=== PATIENT | male | born 1945 | race Caucasian/White ===

== ENCOUNTER 2016-06-09 06:23 | Inpatient (IN) | payer MEDICARE ==
--- NOTE | ~2016-06-09 | CN ---
Consultation Report [facility] [address] [place]. [address] NAME: ELSY HAM : 49 STATUS : ADM IN PAT#: [id number] AGE: 71 ADM/REG DATE : 06/09/16 MR#: [id number] REPORT SERV DATE: 06/09/16 DICTATED BY: PIO HOYT DATE: 06/09/16 REPORT STATUS : Draft TRANSCRIBED BY: MODL DATE: 06/09/16 CONSULTATION DATE OF CONSULTATION: 06/09/2016 IMPRESSION: 1. Uncontrolled hypertension. 2. Acute diverticulitis. 3. Chronic kidney disease with a solitary kidney. 4. History of renal cell carcinoma, status post nephrectomy, currently under a study with Dr. Parth Bolanos. PLAN: We will change IV fluids to lactated Ringer to reduce salt amount in the fluids as well as reduce the rate of fluid to 100 mL an hour. We will give patient IV LEAD SIMULATION MODELING ENGINEER for better pain control which will help blood pressure. We will start the patient on labetalol 20 mg every six hours p.r.n. for blood pressure greater than 160. Hold for heart rate less than 70. We will also continue hydralazine 10 mg every six hours for blood pressure greater than 160/90. The patient will have a clonidine patch placed that has already been done. We will resume home dose of clonidine 0.1 mg twice daily. We will check routine labs again in the morning. I have discussed the plan of care with the and the patient at the bedside. They understand and agree. We thank you for this consultation. We will follow with you. BRIEF HISTORY OF PRESENT ILLNESS: The patient is a 71-year-old white male, admitted to General Surgery Service for acute diverticulitis with possibility of acute peritonitis. Medicine Service was asked to see the patient for uncontrolled hypertension. This patient denies any headache. This patient denies any visual difficulty. This patient denies any chest pain or shortness of breath. He has had some nausea, but no vomiting. He did have one bowel movement. He voided about 400 mL of urine today. However, his blood pressure has been very difficult to manage. He has been given IV fluids and adequate for reasonable pain control to see if his pressure would respond. This patient denied any fever, chills, or any other constitutional symptoms. REVIEW OF SYSTEMS: A 12-point review of systems otherwise negative. PAST MEDICAL HISTORY: Significant for chronic kidney disease with solitary kidney, hypertension, and renal cell carcinoma. PAST SURGICAL HISTORY: Significant for left nephrectomy for renal cell carcinoma and a hernia repair. ALLERGIES: NO KNOWN DRUG ALLERGIES. HOME MEDICATIONS: Aspirin 81 mg once daily, Coenzyme Q10, vitamin D, vitamin B12, clonidine Consultation Report [facility] [address] [place]. [address] NAME: ELSY HAM : 47 STATUS : ADM IN PAT#: [id number] AGE: 71 ADM/REG DATE : 06/09/16 MR#: [id number] REPORT SERV DATE: 06/09/16 DICTATED BY: PIO HOYT DATE: 06/09/16 REPORT STATUS : Draft TRANSCRIBED BY: SAMANTHA DATE: 06/09/16 0.1 mg twice daily, Prevacid 30 mg once at bedtime, hydrocodone 5/325 one tablet every six hours p.r.n. for pain, ibuprofen 400 mg once daily as needed, and prednisone 20 mg recently started. SOCIAL HISTORY: No use of alcohol, tobacco, or illicit substances. FAMILY HISTORY: Reviewed with the patient but noncontributory for this encounter. PHYSICAL EXAMINATION: VITAL SIGNS: Blood pressure is 225/124. Most recent blood pressure 184/94, heart rate of 114, and saturation of 96%. HEENT: Head is normocephalic, atraumatic. Pupils are equal, round, and reactive to light. Extraocular muscles are intact. Sclerae anicteric. Conjunctivae normal. Oropharynx is without lesion. Tongue protrusion midline. Uvula midline. Dry mucous membranes. NECK: Supple. No jugular venous distention. No carotid bruits or thyromegaly is appreciated. No lymphadenopathy in the neck is palpable. HEART: Tachycardic. No murmurs, rubs, or gallops. PMI nondisplaced. LUNGS: Clear to auscultation anteriorly and in both axillary areas. ABDOMEN: Significantly tight. Very significant guarding. Worse in the lower quadrants. No rebound. Organomegaly not appreciable because of the patient's guarding. EXTREMITIES: Without cyanosis, clubbing, or edema. NEUROLOGICAL: Seems to be grossly intact. LABORATORY DATA: CT of the abdomen and pelvis shows acute sigmoid diverticulitis without perforation. Electrolytes are completely normal. BUN is 27 and creatinine of 1.87, which is at his baseline. Glucose is 105. Liver function studies are all normal. Lipase was slightly elevated at 459 and lactate level is 2.0. White count is 21,000, hemoglobin of 17.9, hematocrit of 51, and platelet count is 199,000. No left shift. Once again, we thank you for this consultation. We will follow with you. SV/MODL Pio Hoyt M.D. / [id number] CC: MD Kala Demarco MD Derek W Holland, M.D.
--- NOTE | ~2016-06-09 | HP ---
History And Physical [place] [place] [id number] [facility] [place]. [address] NAME: ELSY FARR : 49 STATUS : DIS IN PAT#: [id number] AGE: 71 ADM/REG DATE : 06/09/16 MR#: [id number] REPORT SERV DATE: 07/16/16 DICTATED BY: KELSEY FLOREZ DATE: 07/16/16 REPORT STATUS : Draft TRANSCRIBED BY: MODL DATE: 07/16/16 DATE OF ADMISSION: 06/09/2016 CHIEF COMPLAINT: Abdominal pain. HISTORY OF PRESENT ILLNESS: Mr. Farr is a 71-year-old man who presents with severe left lower quadrant and suprapubic abdominal pain for approximately 12-14 hours. Reports that the pain radiated to his penis and lower abdomen. He denies vomiting, shortness of breath, fevers, and chills. He does have dysuria and did have nausea and dry heaves on the day of admission. He had no previous history of diverticulitis or pain of this nature before. PAST MEDICAL HISTORY: Hypertension, kidney cancer. PAST SURGICAL HISTORY: Left nephrectomy, colonoscopy. ALLERGIES: NO KNOWN DRUG ALLERGIES. MEDICATIONS: Prednisone. FAMILY HISTORY: He denies colon cancer. SOCIAL HISTORY: He is retired, . He denies tobacco, alcohol, or drugs. REVIEW OF SYSTEMS: Comprehensive 12-point review of system was obtained and is negative except for that listed in history of present illness. PHYSICAL EXAMINATION: VITAL SIGNS: Temperature is 99.3, respiratory rate of 16, sat 95%, his blood pressure is 217/120, his heart rate is 114. GENERAL: He is a very ill appearing, uncomfortable, dry heaving. CHEST: Clear to auscultation bilaterally. Nonlabored breathing. CARDIOVASCULAR: Tachycardic with regular rhythm. ABDOMEN: Soft. He has tenderness to palpation in lower abdomen with focal peritonitis. There is no diffuse peritonitis. No hernias. No masses. EXTREMITIES: Well perfused. No edema. LABORATORY VALUES: White blood cell count 21.5, hematocrit 51, platelets 199. Sodium 143, potassium 4, chloride 106, bicarb 25, BUN 27, creatinine 1.8, glucose 108, lactate is 2. CT shows extensive colonic diverticulitis with microperforation and phlegmon in the mid sigmoid colon. There is possible interloop fluid in the pelvis, but no discreet abscess. ASSESSMENT/PLAN: Mr. Farr is a 71-year-old man with evidence of complicated diverticulitis with microperforation and phlegmon. He is significantly hypertensive, tachycardic, ill appearing. We will admit him to the hospital, give him aggressive IV fluid resuscitation. We will start IV antibiotics. Monitor his clinical course. It is possible History And Physical [address] [address] NAME: ELSY FARR : 49 STATUS : DIS IN PAT#: [id number] AGE: 71 ADM/REG DATE : 06/09/16 MR#: [id number] REPORT SERV DATE: 07/16/16 DICTATED BY: KELSEY FLOREZ DATE: 07/16/16 REPORT STATUS : Draft TRANSCRIBED BY: SAMANTHA DATE: 07/16/16 he will need an operation this admission, however, if we can get him cooled down with antibiotics and fluids, we may be able to delay this to more of elective operation. We will rescan him in a few days to identify if this has progressed. We will consult the Medicine team for his severe hypertension. NICOLETTE/SAMANTHA Kelsey Florez MD / [id number] CC: MD Kala Demarco MD
--- NOTE | ~2016-06-09 | OP ---
Record Of Operation [facility] [address] [place]. [address] NAME: ELSY FARR : 49 STATUS : ADM IN [facility]#: [id number] AGE: 71 ADM/REG DATE : 06/09/16 MR#: [id number] REPORT SERV DATE: 06/21/16 DICTATED BY: CHRISTOPHE COLE DATE: 06/21/16 REPORT STATUS : Draft TRANSCRIBED BY: MODL DATE: 06/21/16 DATE OF PROCEDURE: 06/16/2016 PREOPERATIVE DIAGNOSIS: Perforated diverticulitis. POSTOPERATIVE DIAGNOSIS: Perforated diverticulitis. OPERATION PERFORMED: Rahel's procedure. SURGEON: Christophe Cole M.D. LINK MACHINE OPERATOR: Helen Chanel MD. ESTIMATED BLOOD LOSS: Less than 100 mL. IV FLUIDS: Adequate. INDICATION FOR PROCEDURE: Mr. Farr is a 71-year-old gentleman, who had been admitted with perforated diverticulitis. He has a CT which shows increasing free air and worsening symptoms. He is brought to the operating room now for the definitive procedure. Full risks and benefits of the procedure have been discussed including the probable need for colostomy. INTRAOPERATIVE FINDINGS: Moderate amount of free air with significant exudate around the sigmoid colon. Due to his poor nutrition and inflammatory changes around the sigmoid colon, we held off on placing him back in continuity. DESCRIPTION OF OPERATION: After appropriate sedation, the patient was prepped and draped in proper sterile fashion. A lower midline incision was performed. Subcutaneous tissues were incised down through the peritoneum. There was free air that was released. There were inflammatory reaction around the colon. We then at this point, mobilized the colon laterally and medially along the peritoneum. This was difficult due to the amount of chronic inflammation. We were able to get down to relatively normal filling of rectum. We transected the proximal colon using a 75 ADELE stapler. We dissected the rectosigmoid junction using a 75 ADELE stapler. The mesentery was taken down using the Harmonic Scalpel as well as 2-0 stick ties. The specimen was then passed off with a suture placed on the distal aspect. We then copiously irrigated out the abdomen. We evaluated both limbs of the staple lines. Due to his poor nutrition and the amount of inflammation, I decided to hold off on placing him back in continuity, as I felt like he would be at high risk for leak and complication. We therefore mobilized the left colon superiorly along the white line of Toldt further to help with mobilization. He had previously been marked for colostomy. This area was excised using cautery in a circular fashion. We then incised the fat down to the anterior rectus fascia. On the left side, the left anterior rectus fascia was incised in a cruciate fashion. We then incised the posterior rectus fascia after splitting the rectus muscle. The colon was then delivered through the abdominal wall with good length. We then placed a Prolene suture on each edge of the staple line of the rectal stump. We then placed a Seprafilm into the pelvis and over the abdominal contents, after bringing the omentum over Record Of Operation [address] [place]. [address] NAME: ELSY FARR : 49 STATUS : ADM IN [facility]#: [id number] AGE: 71 ADM/REG DATE : 06/09/16 MR#: [id number] REPORT SERV DATE: 06/21/16 DICTATED BY: CHRISTOPHE COLE DATE: 06/21/16 REPORT STATUS : Draft TRANSCRIBED BY: SAMANTHA DATE: 06/21/16 the abdominal contents. The fascia was closed using a running #1 looped PDS suture. The wound was irrigated and the skin was closed using lucy. A sterile towel was placed over the abdominal wall. The staple line was excised from the distal colon. It was then matured using 3-0 Vicryl sutures. It did appear viable. Ostomy appliance was placed. Dressings were placed. The patient was taken to recovery room in satisfactory condition. KARRI/SAMANTHA Christophe Cole M.D. / [id number] CC: MD Kala Demarco MD
--- NOTE | ~2016-06-09 | CN ---
Consultation Report [facility] [address] [place]. [address] NAME: ELSY FARR : 49 STATUS : ADM IN [facility]#: [id number] AGE: 71 ADM/REG DATE : 06/09/16 MR#: [id number] REPORT SERV DATE: 06/20/16 DICTATED BY: DATE: REPORT STATUS : Draft TRANSCRIBED BY: MODL DATE: 06/20/16 DATE OF CONSULTATION: REASON FOR CONSULTATION: Hypertension, solitary kidney. HISTORY OF PRESENT ILLNESS: Mr. Farr is a 71-year-old white male with a history of hypertension and CKD in the setting of solitary kidney with left nephrectomy for renal cell carcinoma, diverticulitis. He presented to the hospital with diverticulitis and had perforation. He is status post sigmoid colon resection with colostomy on 06/16/2016. In regard to his hypertension, he has had long-standing hypertension that has been well controlled, usual blood pressures in the 130s at home with clonidine 0.1 mg twice daily. He usually is quite active, runs at least three times weekly and since being in the hospital, his blood pressure has been up and he states his pain is better today, but has been uncontrolled. His last blood pressure just before I arrived was in the 150s after a labetalol injection. Heart rates in the 80s. He had a renal Doppler that was negative. He is already on amlodipine, metoprolol, clonidine, and getting p.r.n. hydralazine as well. No shortness of breath, chest pain, tightness, pressure. No problems with edema. PAST MEDICAL HISTORY: Hypertension, diverticulitis, CKD, solitary kidney, left renal cell carcinoma, status post nephrectomy. ALLERGIES: NONE. FAMILY MEDICAL HISTORY: No end-stage renal disease. SOCIAL HISTORY: He is . No tobacco, alcohol, or illicit drug use. MEDICATIONS AT THE TIME OF CONSULTATION: Acetaminophen, amlodipine, Lovenox, gabapentin, hydrochlorothiazide, regular insulin, levofloxacin, Flagyl, metoprolol, nitroglycerin, clonidine patch and clonidine p.o., TPN, and Protonix. REVIEW OF SYSTEMS: A 12-point review of systems obtained, negative with the exception of that in the HPI. PHYSICAL EXAMINATION: VITAL SIGNS: Temp 97.8, blood pressure 191/101 and before I went in, it was in the 150s, pulse 84, respiratory rate 16, O2 saturation 94% at 3 L. GENERAL: This is a cooperative white male, sitting up in chair at bedside. HEENT: Normocephalic, atraumatic. Conjunctivae clear. Sclerae are anicteric. Pupils are equal and round. Oral mucosa is dry. NECK: No lymphadenopathy. Neck veins flat. Carotids are brisk. LUNGS: Respirations even and unlabored. Breath sounds clear to auscultation. HEART: Rate is regular. No murmur, rub, or gallop. ABDOMEN: Colostomy to the left abdomen. No CVA tenderness. BACK: Within normal limits. Consultation Report [address] [place]. [address] NAME: ELSY FARR : 49 STATUS : ADM IN [facility]#: [id number] AGE: 71 ADM/REG DATE : 06/09/16 MR#: [id number] REPORT SERV DATE: 06/20/16 DICTATED BY: DATE: REPORT STATUS : Draft TRANSCRIBED BY: MODL DATE: 06/20/16 EXTREMITIES: No edema, cyanosis, or clubbing. SKIN: No unusual rash or skin lesions. NEURO: Generalized weakness. No focal deficits. Mood and affect, pleasant appropriate. PERTINENT LABS AND X-RAYS: WBCs 12, H and H 13 and 41, and platelets 232,000. Sodium 142, potassium 3.7, chloride 111, CO2 of 26, BUN of 40, creatinine 1.5. Magnesium of 2. Albumin of 1.8. BNP of 52. IMPRESSION: 1. Accelerated hypertension in the setting of diverticulitis in this patient that is usually well controlled with clonidine p.o. only. 2. Solitary kidney secondary to renal cell carcinoma. Creatinine is stable. 3. Diverticulitis with perforation, status post sigmoid colon resection and colostomy, postop day 4. PLAN/RECOMMENDATION: In regard to hypertension and blood pressure, last read was in the 150s and suspect that uncontrolled pain is the cause of his accelerated hypertension as he had reasonable control before and as this improves, so will his blood pressure. We will continue with p.r.n. labetalol as prescribed as well as the hydralazine. We will not make any medicine changes at this time, recommend better pain control, and we will follow along with you. We will follow up later this afternoon and see how blood pressures are. Thank you for the consult. CYNDEE/SAMANTHA SONYA Ortiz / [id number] CC: MD Kala Demarco MD
[2016-06-09 05:41] LABS: BASOPHILS 0.1 %; BASOPHILS ABSOLUTE 0.02 10/3/uL (0.0-0.16); EOSINOPHILS 0 %; IMMATURE GRANULOCYTES 1.1 %; IMMATURE GRANULOCYTES ABSOLUTE 0.23 10/3/uL (0.0-0.11); LYMPHOCYTES 2.8 %; MEAN CORPUS HGB CONC 34.9 g/dL (32.0-36.0); MEAN CORPUSCULAR HEMOGLOB 30.4 pg (26.0-34.0); MEAN CORPUSCULAR VOLUME 87.2 fL (80-100); MEAN PLATELET VOLUME 10.4 fL (9.2-13.0); MONOCYTES 4.8 %; MONOCYTES ABSOLUTE 1.04 10/3/uL (0.21-1.20); NEUTROPHILS 91.2 %; NEUTROPHILS ABSOLUTE 19.64 10/3/uL (2.02-8.40); RBC DISTRIBUTION WIDTH 13.9 % (12.0-16.0)
[2016-06-09 05:47] LABS: ER CBC TAT 0 Hrs 14 Mins; HEMATOCRIT 51.3 % (40.0-51.0); HEMOGLOBIN 17.9 g/dL (13.6-17.8); MANUAL DIFF NO %; PLATELET COUNT 199 10/3/uL (150-400); RED CELL COUNT 5.88 10/6/uL (4.7-6.1); WHITE BLOOD CELLS 21.5 10/3/uL (4.5-10.5)
[2016-06-09 05:54] LABS: A/G RATIO 1.2 (0.7-1.9); ALBUMIN 4.1 G/DL (3.5-5.0); ALKALINE PHOSPHATASE 107 U/L (45-117); BUN (BLOOD UREA NITROGEN) 27 MG/DL (6-23); CALCIUM, SERUM 9.6 MG/DL (8.5-10.4); CHLORIDE, SERUM 106 MMOL/L (96-112); CO2 (CARBON DIOXIDE) 25 MMOL/L (24-34); CREATININE 1.87 MG/DL (0.70-1.30); GFR AFRICAN AMERICAN 42 ML/MIN (>=60); GFR NON AFRICAN AMERICAN 36 ML/MIN (>=60); GLOBULIN 3.4 G/DL (2.5-4.1); GLUCOSE, SERUM 105 MG/DL (60-99); SGOT(AST) 17 U/L (5-40); SGPT(ALT) 36 U/L (5-65); SODIUM, SERUM 143 MMOL/L (135-148); TOTAL PROTEIN 7.5 G/DL (6.0-8.5)
[~2016-06-09 06:23] MED LIST: MICARDIS HCT PO; NORV10 PO; PREV30 PO; Z300 PO
[2016-06-09] MEDS ORDERED: CO Q-10100 MG PO (07:40)
[2016-06-09] MEDS ORDERED: ASAB PO (07:40)
[2016-06-09] MEDS ORDERED: D 5000 PO (07:40)
[2016-06-09] MEDS ORDERED: PREV30 PO (07:41)
[2016-06-09] MEDS ORDERED: CYANO1000T PO (07:41)
[2016-06-09] MEDS ORDERED: CAT1 PO (07:41)
[2016-06-09] MEDS ORDERED: NORCO1 TA1 PO (07:42)
[2016-06-09] MEDS ORDERED: IBU400 PO (07:42)
[2016-06-09] MEDS ORDERED: P20 PO (07:44)
[2016-06-10 06:37] LABS: BASOPHILS 0 %; BASOPHILS ABSOLUTE 0.01 10/3/uL (0.0-0.16); EOSINOPHILS 0 %; IMMATURE GRANULOCYTES 0.6 %; IMMATURE GRANULOCYTES ABSOLUTE 0.15 10/3/uL (0.0-0.11); LYMPHOCYTES 1.9 %; LYMPHOCYTES ABSOLUTE 0.51 10/3/uL (0.67-4.30); MEAN CORPUS HGB CONC 33.9 g/dL (32.0-36.0); MEAN CORPUSCULAR HEMOGLOB 30.5 pg (26.0-34.0); MEAN CORPUSCULAR VOLUME 89.8 fL (80-100); MEAN PLATELET VOLUME 10.9 fL (9.2-13.0); MONOCYTES 2.8 %; MONOCYTES ABSOLUTE 0.74 10/3/uL (0.21-1.20); NEUTROPHILS 94.7 %; NEUTROPHILS ABSOLUTE 24.83 10/3/uL (2.02-8.40); PLATELET COUNT 155 10/3/uL (150-400); RBC DISTRIBUTION WIDTH 14.3 % (12.0-16.0); RED CELL COUNT 4.92 10/6/uL (4.7-6.1)
[2016-06-10 06:40] LABS: HEMATOCRIT 44.2 % (40.0-51.0); WHITE BLOOD CELLS 26.2 10/3/uL (4.5-10.5)
[2016-06-10 06:41] LABS: MANUAL DIFF NO %
[2016-06-10 06:45] LABS: BUN (BLOOD UREA NITROGEN) 29 MG/DL (6-23); CHLORIDE, SERUM 109 MMOL/L (96-112); CO2 (CARBON DIOXIDE) 23 MMOL/L (24-34); CREATININE 2.15 MG/DL (0.70-1.30); GFR AFRICAN AMERICAN 35 ML/MIN (>=60); GFR NON AFRICAN AMERICAN 30 ML/MIN (>=60); POTASSIUM, SERUM 4.3 MMOL/L (3.5-5.3); SODIUM, SERUM 142 MMOL/L (135-148)
[2016-06-10 06:50] LABS: ALBUMIN 2.8 G/DL (3.5-5.0); GLUCOSE, SERUM 127 MG/DL (60-99)
[2016-06-10 07:22] LABS: BAND NEUTROPHILS 13 %; LYMPHOCYTES 4 %; LYMPHOCYTES ABSOLUTE (CALC) 1.05 10/3/uL (0.67-4.30); NEUTROPHILS ABSOLUTE (CALC) 25.15 10/3/uL (2.02-8.40); PLATELET ESTIMATE ADQ (ADEQUATE); SEGMENTED NEUTROPHIL (0) 83 %; TOTAL NUCLEATED CELLS 100
[2016-06-10 07:23] LABS: RBC MORPHOLOGY NORM (NORMAL)
[2016-06-11 06:37] LABS: ALBUMIN 2.5 G/DL (3.5-5.0); CALCIUM, SERUM 8.9 MG/DL (8.5-10.4); CHLORIDE, SERUM 108 MMOL/L (96-112); CO2 (CARBON DIOXIDE) 25 MMOL/L (24-34); CREATININE 2.26 MG/DL (0.70-1.30); GFR AFRICAN AMERICAN 33 ML/MIN (>=60); GFR NON AFRICAN AMERICAN 29 ML/MIN (>=60); PHOSPHORUS, SERUM 3.1 MG/DL (2.5-4.5); POTASSIUM, SERUM 4.3 MMOL/L (3.5-5.3); SODIUM, SERUM 142 MMOL/L (135-148)
[2016-06-11 06:38] LABS: BUN (BLOOD UREA NITROGEN) 37 MG/DL (6-23); GLUCOSE, SERUM 96 MG/DL (60-99)
[2016-06-11 06:40] LABS: HEMATOCRIT 43.7 % (40.0-51.0); HEMOGLOBIN 14.4 g/dL (13.6-17.8); MEAN CORPUSCULAR HEMOGLOB 29.9 pg (26.0-34.0); MEAN CORPUSCULAR VOLUME 90.7 fL (80-100); MEAN PLATELET VOLUME 10.8 fL (9.2-13.0); PLATELET COUNT 138 10/3/uL (150-400); RBC DISTRIBUTION WIDTH 14.6 % (12.0-16.0); RED CELL COUNT 4.82 10/6/uL (4.7-6.1); WHITE BLOOD CELLS 21.2 10/3/uL (4.5-10.5)
[2016-06-11 06:41] LABS: MANUAL DIFF YES %
[2016-06-11 07:28] LABS: BAND NEUTROPHILS 14 %; LYMPHOCYTES 5 %; LYMPHOCYTES ABSOLUTE (CALC) 1.06 10/3/uL (0.67-4.30); MONOCYTES 4 %; MONOCYTES ABSOLUTE (CALC) 0.85 10/3/uL (0.21-1.20); NEUTROPHILS ABSOLUTE (CALC) 19.29 10/3/uL (2.02-8.40); PLATELET ESTIMATE SLT DEC (ADEQUATE); RBC MORPHOLOGY NORM (NORMAL); SEGMENTED NEUTROPHIL (0) 77 %; TOTAL NUCLEATED CELLS 100
[2016-06-11 13:11] LABS: ALBUMIN 2.4 G/DL (3.5-5.0); BUN (BLOOD UREA NITROGEN) 35 MG/DL (6-23); CHLORIDE, SERUM 109 MMOL/L (96-112); CO2 (CARBON DIOXIDE) 23 MMOL/L (24-34); CREATININE 2.13 MG/DL (0.70-1.30); GFR AFRICAN AMERICAN 36 ML/MIN (>=60); GFR NON AFRICAN AMERICAN 31 ML/MIN (>=60); GLUCOSE, SERUM 98 MG/DL (60-99); PHOSPHORUS, SERUM 2.6 MG/DL (2.5-4.5); SODIUM, SERUM 145 MMOL/L (135-148)
[2016-06-12 05:17] LABS: HEMATOCRIT 42.4 % (40.0-51.0); MEAN CORPUSCULAR HEMOGLOB 29.7 pg (26.0-34.0); MEAN PLATELET VOLUME 11.1 fL (9.2-13.0); PLATELET COUNT 151 10/3/uL (150-400); RBC DISTRIBUTION WIDTH 14.9 % (12.0-16.0); RED CELL COUNT 4.71 10/6/uL (4.7-6.1); WHITE BLOOD CELLS 21.7 10/3/uL (4.5-10.5)
[2016-06-12 05:18] LABS: MANUAL DIFF YES %
[2016-06-12 05:30] LABS: ALBUMIN 2.1 G/DL (3.5-5.0); BUN (BLOOD UREA NITROGEN) 34 MG/DL (6-23); CALCIUM, SERUM 8.6 MG/DL (8.5-10.4); CHLORIDE, SERUM 108 MMOL/L (96-112); CO2 (CARBON DIOXIDE) 23 MMOL/L (24-34); CREATININE 1.95 MG/DL (0.70-1.30); GFR AFRICAN AMERICAN 40 ML/MIN (>=60); GFR NON AFRICAN AMERICAN 34 ML/MIN (>=60); GLUCOSE, SERUM 114 MG/DL (60-99); POTASSIUM, SERUM 4.3 MMOL/L (3.5-5.3); SODIUM, SERUM 143 MMOL/L (135-148)
[2016-06-12 05:36] LABS: PHOSPHORUS, SERUM 3.4 MG/DL (2.5-4.5)
[2016-06-12 06:48] LABS: BAND NEUTROPHILS 7 %; LYMPHOCYTES 2 %; LYMPHOCYTES ABSOLUTE (CALC) 0.43 10/3/uL (0.67-4.30); MONOCYTES 2 %; MONOCYTES ABSOLUTE (CALC) 0.43 10/3/uL (0.21-1.20); NEUTROPHILS ABSOLUTE (CALC) 20.83 10/3/uL (2.02-8.40); PLATELET ESTIMATE ADQ (ADEQUATE); SEGMENTED NEUTROPHIL (0) 89 %; TOTAL NUCLEATED CELLS 100
[2016-06-12 06:52] LABS: BURR CELLS 1+ (3-10/OIF) (0-2/OIF)
[2016-06-13 05:01] LABS: HEMATOCRIT 41.6 % (40.0-51.0); HEMOGLOBIN 13.8 g/dL (13.6-17.8); MEAN CORPUS HGB CONC 33.2 g/dL (32.0-36.0); MEAN CORPUSCULAR HEMOGLOB 29.9 pg (26.0-34.0); MEAN PLATELET VOLUME 10.3 fL (9.2-13.0); PLATELET COUNT 146 10/3/uL (150-400); RBC DISTRIBUTION WIDTH 14.9 % (12.0-16.0); RED CELL COUNT 4.62 10/6/uL (4.7-6.1); WHITE BLOOD CELLS 17.5 10/3/uL (4.5-10.5)
[2016-06-13 05:12] LABS: MANUAL DIFF YES %
[2016-06-13 05:19] LABS: BUN (BLOOD UREA NITROGEN) 33 MG/DL (6-23); CALCIUM, SERUM 8.5 MG/DL (8.5-10.4); CHLORIDE, SERUM 109 MMOL/L (96-112); CO2 (CARBON DIOXIDE) 22 MMOL/L (24-34); CREATININE 1.82 MG/DL (0.70-1.30); GFR AFRICAN AMERICAN 43 ML/MIN (>=60); GFR NON AFRICAN AMERICAN 37 ML/MIN (>=60); GLUCOSE, SERUM 110 MG/DL (60-99); POTASSIUM, SERUM 4.4 MMOL/L (3.5-5.3); SODIUM, SERUM 143 MMOL/L (135-148)
[2016-06-13 06:00] LABS: BAND NEUTROPHILS 6 %; EOSINOPHILS 2 %; EOSINOPHILS ABSOLUTE (CALC) 0.35 10/3/uL (0.0-0.53); LYMPHOCYTES 2 %; LYMPHOCYTES ABSOLUTE (CALC) 0.35 10/3/uL (0.67-4.30); MONOCYTES 2 %; MONOCYTES ABSOLUTE (CALC) 0.35 10/3/uL (0.21-1.20); NEUTROPHILS ABSOLUTE (CALC) 16.45 10/3/uL (2.02-8.40); PLATELET ESTIMATE ADQ (ADEQUATE); RBC MORPHOLOGY NORM (NORMAL); SEGMENTED NEUTROPHIL (0) 88 %; TOTAL NUCLEATED CELLS 100
[2016-06-14 06:21] LABS: BASOPHILS 0.1 %; BASOPHILS ABSOLUTE 0.02 10/3/uL (0.0-0.16); EOSINOPHILS 2.3 %; EOSINOPHILS ABSOLUTE 0.32 10/3/uL (0.0-0.53); HEMATOCRIT 41.8 % (40.0-51.0); HEMOGLOBIN 14.2 g/dL (13.6-17.8); IMMATURE GRANULOCYTES 2.3 %; IMMATURE GRANULOCYTES ABSOLUTE 0.31 10/3/uL (0.0-0.11); LYMPHOCYTES 6.3 %; LYMPHOCYTES ABSOLUTE 0.86 10/3/uL (0.67-4.30); MEAN CORPUSCULAR HEMOGLOB 30.1 pg (26.0-34.0); MEAN CORPUSCULAR VOLUME 88.7 fL (80-100); MEAN PLATELET VOLUME 10.4 fL (9.2-13.0); MONOCYTES 3.8 %; MONOCYTES ABSOLUTE 0.52 10/3/uL (0.21-1.20); NEUTROPHILS 85.2 %; NEUTROPHILS ABSOLUTE 11.65 10/3/uL (2.02-8.40); PLATELET COUNT 166 10/3/uL (150-400); RBC DISTRIBUTION WIDTH 14.6 % (12.0-16.0); RED CELL COUNT 4.71 10/6/uL (4.7-6.1); WHITE BLOOD CELLS 13.7 10/3/uL (4.5-10.5)
[2016-06-14 06:29] LABS: MANUAL DIFF NO %
[2016-06-14 06:30] LABS: BUN (BLOOD UREA NITROGEN) 35 MG/DL (6-23); CALCIUM, SERUM 8.3 MG/DL (8.5-10.4); CHLORIDE, SERUM 106 MMOL/L (96-112); CO2 (CARBON DIOXIDE) 24 MMOL/L (24-34); CREATININE 1.59 MG/DL (0.70-1.30); GFR AFRICAN AMERICAN 51 ML/MIN (>=60); GFR NON AFRICAN AMERICAN 44 ML/MIN (>=60); GLUCOSE, SERUM 100 MG/DL (60-99); PHOSPHORUS, SERUM 3.5 MG/DL (2.5-4.5); POTASSIUM, SERUM 4.1 MMOL/L (3.5-5.3); SODIUM, SERUM 139 MMOL/L (135-148)
[2016-06-14 21:11] LABS: ASCORBIC ACID (UR NOT ORDER) NEG (NEG); BILIRUBIN, URINE NEGATIVE (NEG); KETONE, URINE NEGATIVE (NEG); LEUKOCYTE ESTERASE(NOT OR NEG (NEG); WBC (NOT ORDERED) (RFLEX) < 1 (0-5)
[2016-06-15 05:30] LABS: BASOPHILS 0.1 %; BASOPHILS ABSOLUTE 0.01 10/3/uL (0.0-0.16); EOSINOPHILS 1.3 %; EOSINOPHILS ABSOLUTE 0.16 10/3/uL (0.0-0.53); HEMATOCRIT 41.3 % (40.0-51.0); HEMOGLOBIN 13.9 g/dL (13.6-17.8); IMMATURE GRANULOCYTES 2.5 %; IMMATURE GRANULOCYTES ABSOLUTE 0.32 10/3/uL (0.0-0.11); LYMPHOCYTES 3.1 %; LYMPHOCYTES ABSOLUTE 0.39 10/3/uL (0.67-4.30); MEAN CORPUS HGB CONC 33.7 g/dL (32.0-36.0); MEAN CORPUSCULAR HEMOGLOB 29.9 pg (26.0-34.0); MEAN CORPUSCULAR VOLUME 88.8 fL (80-100); MEAN PLATELET VOLUME 10.1 fL (9.2-13.0); MONOCYTES 6.8 %; MONOCYTES ABSOLUTE 0.86 10/3/uL (0.21-1.20); NEUTROPHILS 86.2 %; NEUTROPHILS ABSOLUTE 10.95 10/3/uL (2.02-8.40); PLATELET COUNT 176 10/3/uL (150-400); RBC DISTRIBUTION WIDTH 14.6 % (12.0-16.0); RED CELL COUNT 4.65 10/6/uL (4.7-6.1); WHITE BLOOD CELLS 12.7 10/3/uL (4.5-10.5)
[2016-06-15 05:31] LABS: MANUAL DIFF NO %
[2016-06-15 05:44] LABS: ALBUMIN 1.9 G/DL (3.5-5.0); BUN (BLOOD UREA NITROGEN) 35 MG/DL (6-23); CHLORIDE, SERUM 109 MMOL/L (96-112); CO2 (CARBON DIOXIDE) 23 MMOL/L (24-34); CREATININE 1.53 MG/DL (0.70-1.30); GFR AFRICAN AMERICAN 53 ML/MIN (>=60); GFR NON AFRICAN AMERICAN 46 ML/MIN (>=60); GLUCOSE, SERUM 98 MG/DL (60-99); PHOSPHORUS, SERUM 3.6 MG/DL (2.5-4.5); POTASSIUM, SERUM 4.3 MMOL/L (3.5-5.3); SODIUM, SERUM 141 MMOL/L (135-148)
[2016-06-16 12:24] LABS: BASOPHILS 0.2 %; BASOPHILS ABSOLUTE 0.03 10/3/uL (0.0-0.16); EOSINOPHILS 0 %; HEMATOCRIT 43.3 % (40.0-51.0); HEMOGLOBIN 14.7 g/dL (13.6-17.8); IMMATURE GRANULOCYTES 1.8 %; IMMATURE GRANULOCYTES ABSOLUTE 0.36 10/3/uL (0.0-0.11); LYMPHOCYTES 1.7 %; LYMPHOCYTES ABSOLUTE 0.33 10/3/uL (0.67-4.30); MEAN CORPUS HGB CONC 33.9 g/dL (32.0-36.0); MEAN CORPUSCULAR VOLUME 88.4 fL (80-100); MEAN PLATELET VOLUME 10.1 fL (9.2-13.0); MONOCYTES 1.2 %; MONOCYTES ABSOLUTE 0.23 10/3/uL (0.21-1.20); NEUTROPHILS 95.1 %; NEUTROPHILS ABSOLUTE 18.77 10/3/uL (2.02-8.40); PLATELET COUNT 199 10/3/uL (150-400); RBC DISTRIBUTION WIDTH 14.5 % (12.0-16.0)
[2016-06-16 12:27] LABS: MANUAL DIFF NO %; WHITE BLOOD CELLS 19.7 10/3/uL (4.5-10.5)
[2016-06-16 12:42] LABS: ALBUMIN 2.1 G/DL (3.5-5.0); CALCIUM, SERUM 8.2 MG/DL (8.5-10.4); CHLORIDE, SERUM 107 MMOL/L (96-112); CO2 (CARBON DIOXIDE) 23 MMOL/L (24-34); CREATININE 1.49 MG/DL (0.70-1.30); GFR AFRICAN AMERICAN 55 ML/MIN (>=60); GFR NON AFRICAN AMERICAN 47 ML/MIN (>=60); PHOSPHORUS, SERUM 3.5 MG/DL (2.5-4.5); POTASSIUM, SERUM 4.9 MMOL/L (3.5-5.3); SGPT(ALT) 20 U/L (5-65); SODIUM, SERUM 139 MMOL/L (135-148); TOTAL BILIRUBIN 1.3 MG/DL (0-1.2); TRIGLYCERIDE 128 MG/DL (< 150)
[2016-06-16 12:43] LABS: A/G RATIO 0.7 (0.7-1.9); ALKALINE PHOSPHATASE 72 U/L (45-117); BUN (BLOOD UREA NITROGEN) 41 MG/DL (6-23); GLOBULIN 3.2 G/DL (2.5-4.1); GLUCOSE, SERUM 206 MG/DL (60-99); SGOT(AST) 27 U/L (5-40); TOTAL PROTEIN 5.3 G/DL (6.0-8.5)
[2016-06-16 12:45] LABS: PREALBUMIN 8.8 MG/DL (17.0-43.0)
[2016-06-17 07:59] LABS: HEMATOCRIT 43.3 % (40.0-51.0); HEMOGLOBIN 14.4 g/dL (13.6-17.8); MANUAL DIFF YES %; MEAN CORPUS HGB CONC 33.3 g/dL (32.0-36.0); MEAN CORPUSCULAR HEMOGLOB 29.9 pg (26.0-34.0); MEAN CORPUSCULAR VOLUME 89.8 fL (80-100); MEAN PLATELET VOLUME 9.9 fL (9.2-13.0); PLATELET COUNT 195 10/3/uL (150-400); RED CELL COUNT 4.82 10/6/uL (4.7-6.1); WHITE BLOOD CELLS 19.3 10/3/uL (4.5-10.5)
[2016-06-17 08:12] LABS: BUN (BLOOD UREA NITROGEN) 44 MG/DL (6-23); CALCIUM, SERUM 8.4 MG/DL (8.5-10.4); CHLORIDE, SERUM 113 MMOL/L (96-112); CO2 (CARBON DIOXIDE) 23 MMOL/L (24-34); CREATININE 1.58 MG/DL (0.70-1.30); GFR AFRICAN AMERICAN 51 ML/MIN (>=60); GFR NON AFRICAN AMERICAN 44 ML/MIN (>=60); GLUCOSE, SERUM 172 MG/DL (60-99); PHOSPHORUS, SERUM 2.6 MG/DL (2.5-4.5); POTASSIUM, SERUM 4.5 MMOL/L (3.5-5.3); SODIUM, SERUM 144 MMOL/L (135-148)
[2016-06-17 09:06] LABS: BAND NEUTROPHILS 2 %; EOSINOPHILS 2 %; EOSINOPHILS ABSOLUTE (CALC) 0.39 10/3/uL (0.0-0.53); IMMATURE GRANS ABSOLUTE (CALC) 0.39 10/3/uL (0.0-0.11); LYMPHOCYTES 3 %; LYMPHOCYTES ABSOLUTE (CALC) 0.58 10/3/uL (0.67-4.30); METAMYELOCYTES 1 %; MONOCYTES 6 %; MONOCYTES ABSOLUTE (CALC) 1.16 10/3/uL (0.21-1.20); MYELOCYTES 1 %; NEUTROPHILS ABSOLUTE (CALC) 16.79 10/3/uL (2.02-8.40); SEGMENTED NEUTROPHIL (0) 85 %; TOTAL NUCLEATED CELLS 100
[2016-06-17 09:07] LABS: PLATELET ESTIMATE ADQ (ADEQUATE); RBC MORPHOLOGY NORM (NORMAL)
[2016-06-18 06:10] LABS: HEMATOCRIT 44.5 % (40.0-51.0); MEAN CORPUS HGB CONC 33.7 g/dL (32.0-36.0); MEAN CORPUSCULAR HEMOGLOB 30.1 pg (26.0-34.0); MEAN CORPUSCULAR VOLUME 89.4 fL (80-100); MEAN PLATELET VOLUME 10.3 fL (9.2-13.0); PLATELET COUNT 240 10/3/uL (150-400); RBC DISTRIBUTION WIDTH 15.1 % (12.0-16.0); RED CELL COUNT 4.98 10/6/uL (4.7-6.1); WHITE BLOOD CELLS 18.5 10/3/uL (4.5-10.5)
[2016-06-18 06:11] LABS: MANUAL DIFF YES %
[2016-06-18 06:17] LABS: ALBUMIN 2.1 G/DL (3.5-5.0); BUN (BLOOD UREA NITROGEN) 44 MG/DL (6-23); CALCIUM, SERUM 8.7 MG/DL (8.5-10.4); CHLORIDE, SERUM 111 MMOL/L (96-112); CO2 (CARBON DIOXIDE) 28 MMOL/L (24-34); CREATININE 1.51 MG/DL (0.70-1.30); GFR AFRICAN AMERICAN 54 ML/MIN (>=60); GFR NON AFRICAN AMERICAN 46 ML/MIN (>=60); GLUCOSE, SERUM 134 MG/DL (60-99); PHOSPHORUS, SERUM 2.8 MG/DL (2.5-4.5); POTASSIUM, SERUM 4.3 MMOL/L (3.5-5.3); SODIUM, SERUM 149 MMOL/L (135-148)
[2016-06-18 06:32] LABS: BAND NEUTROPHILS 2 %; IMMATURE GRANS ABSOLUTE (CALC) 0.19 10/3/uL (0.0-0.11); LYMPHOCYTES 1 %; LYMPHOCYTES ABSOLUTE (CALC) 0.19 10/3/uL (0.67-4.30); METAMYELOCYTES 1 %; MONOCYTES 2 %; MONOCYTES ABSOLUTE (CALC) 0.37 10/3/uL (0.21-1.20); NEUTROPHILS ABSOLUTE (CALC) 17.76 10/3/uL (2.02-8.40); PLATELET ESTIMATE ADQ (ADEQUATE); RBC MORPHOLOGY NORM (NORMAL); SEGMENTED NEUTROPHIL (0) 94 %; TOTAL NUCLEATED CELLS 100
[2016-06-19 06:48] LABS: BUN (BLOOD UREA NITROGEN) 42 MG/DL (6-23); CALCIUM, SERUM 8.6 MG/DL (8.5-10.4); CHLORIDE, SERUM 111 MMOL/L (96-112); CO2 (CARBON DIOXIDE) 31 MMOL/L (24-34); CREATININE 1.66 MG/DL (0.70-1.30); GFR AFRICAN AMERICAN 48 ML/MIN (>=60); GFR NON AFRICAN AMERICAN 41 ML/MIN (>=60); PHOSPHORUS, SERUM 2.2 MG/DL (2.5-4.5); POTASSIUM, SERUM 3.7 MMOL/L (3.5-5.3); SODIUM, SERUM 148 MMOL/L (135-148)
[2016-06-19 06:50] LABS: GLUCOSE, SERUM 223 MG/DL (60-99)
[2016-06-20 06:35] LABS: HEMOGLOBIN 13.6 g/dL (13.6-17.8); MEAN CORPUS HGB CONC 33.2 g/dL (32.0-36.0); MEAN CORPUSCULAR VOLUME 90.5 fL (80-100); MEAN PLATELET VOLUME 10.9 fL (9.2-13.0); PLATELET COUNT 232 10/3/uL (150-400); RBC DISTRIBUTION WIDTH 15.2 % (12.0-16.0); RED CELL COUNT 4.53 10/6/uL (4.7-6.1); WHITE BLOOD CELLS 12.9 10/3/uL (4.5-10.5)
[2016-06-20 06:43] LABS: MANUAL DIFF YES %
[2016-06-20 06:48] LABS: ALBUMIN 1.8 G/DL (3.5-5.0); BUN (BLOOD UREA NITROGEN) 40 MG/DL (6-23); CALCIUM, SERUM 8.3 MG/DL (8.5-10.4); CHLORIDE, SERUM 111 MMOL/L (96-112); CO2 (CARBON DIOXIDE) 26 MMOL/L (24-34); CREATININE 1.52 MG/DL (0.70-1.30); GFR AFRICAN AMERICAN 53 ML/MIN (>=60); GFR NON AFRICAN AMERICAN 46 ML/MIN (>=60); GLUCOSE, SERUM 225 MG/DL (60-99); POTASSIUM, SERUM 3.7 MMOL/L (3.5-5.3); SODIUM, SERUM 147 MMOL/L (135-148)
[2016-06-20 08:12] LABS: BAND NEUTROPHILS 2 %; EOSINOPHILS 2 %; EOSINOPHILS ABSOLUTE (CALC) 0.26 10/3/uL (0.0-0.53); LYMPHOCYTES 5 %; LYMPHOCYTES ABSOLUTE (CALC) 0.65 10/3/uL (0.67-4.30); MONOCYTES 4 %; MONOCYTES ABSOLUTE (CALC) 0.52 10/3/uL (0.21-1.20); NEUTROPHILS ABSOLUTE (CALC) 11.48 10/3/uL (2.02-8.40); PLATELET ESTIMATE ADQ (ADEQUATE); SEGMENTED NEUTROPHIL (0) 87 %; TOTAL NUCLEATED CELLS 100
[2016-06-20 08:13] LABS: RBC MORPHOLOGY NORM (NORMAL)
[2016-06-21 05:37] LABS: ASCORBIC ACID (UR NOT ORDER) NEG (NEG); BILIRUBIN, URINE NEGATIVE (NEG); KETONE, URINE NEGATIVE (NEG); LEUKOCYTE ESTERASE(NOT OR NEG (NEG); WBC (NOT ORDERED) (RFLEX) < 1 (0-5)
[2016-06-21 06:45] LABS: ALBUMIN 1.9 G/DL (3.5-5.0); CALCIUM, SERUM 8.9 MG/DL (8.5-10.4); CHLORIDE, SERUM 105 MMOL/L (96-112); CO2 (CARBON DIOXIDE) 30 MMOL/L (24-34); CREATININE 1.71 MG/DL (0.70-1.30); GFR AFRICAN AMERICAN 46 ML/MIN (>=60); GFR NON AFRICAN AMERICAN 40 ML/MIN (>=60); GLUCOSE, SERUM 253 MG/DL (60-99); PHOSPHORUS, SERUM 2.7 MG/DL (2.5-4.5); POTASSIUM, SERUM 3.8 MMOL/L (3.5-5.3); SODIUM, SERUM 143 MMOL/L (135-148)
[2016-06-21 06:46] LABS: BUN (BLOOD UREA NITROGEN) 47 MG/DL (6-23)
[2016-06-22 06:02] LABS: BASOPHILS 0.3 %; BASOPHILS ABSOLUTE 0.03 10/3/uL (0.0-0.16); EOSINOPHILS 2.2 %; EOSINOPHILS ABSOLUTE 0.23 10/3/uL (0.0-0.53); HEMATOCRIT 36.6 % (40.0-51.0); HEMOGLOBIN 12.5 g/dL (13.6-17.8); IMMATURE GRANULOCYTES 2.7 %; IMMATURE GRANULOCYTES ABSOLUTE 0.29 10/3/uL (0.0-0.11); LYMPHOCYTES 7.3 %; LYMPHOCYTES ABSOLUTE 0.77 10/3/uL (0.67-4.30); MEAN CORPUS HGB CONC 34.2 g/dL (32.0-36.0); MEAN CORPUSCULAR HEMOGLOB 30.2 pg (26.0-34.0); MEAN CORPUSCULAR VOLUME 88.4 fL (80-100); MONOCYTES 5.3 %; MONOCYTES ABSOLUTE 0.56 10/3/uL (0.21-1.20); NEUTROPHILS 82.2 %; NEUTROPHILS ABSOLUTE 8.72 10/3/uL (2.02-8.40); PLATELET COUNT 231 10/3/uL (150-400); RBC DISTRIBUTION WIDTH 14.6 % (12.0-16.0); RED CELL COUNT 4.14 10/6/uL (4.7-6.1); WHITE BLOOD CELLS 10.6 10/3/uL (4.5-10.5)
[2016-06-22 06:03] LABS: MANUAL DIFF NO %
[2016-06-22 06:13] LABS: ALBUMIN 1.8 G/DL (3.5-5.0); BUN (BLOOD UREA NITROGEN) 48 MG/DL (6-23); CALCIUM, SERUM 8.3 MG/DL (8.5-10.4); CHLORIDE, SERUM 105 MMOL/L (96-112); CO2 (CARBON DIOXIDE) 27 MMOL/L (24-34); CREATININE 1.73 MG/DL (0.70-1.30); GFR AFRICAN AMERICAN 46 ML/MIN (>=60); GFR NON AFRICAN AMERICAN 39 ML/MIN (>=60); GLUCOSE, SERUM 271 MG/DL (60-99); PHOSPHORUS, SERUM 2.9 MG/DL (2.5-4.5); POTASSIUM, SERUM 3.7 MMOL/L (3.5-5.3); SODIUM, SERUM 141 MMOL/L (135-148)
[2016-06-23 06:24] LABS: CALCIUM, SERUM 8.3 MG/DL (8.5-10.4); CHLORIDE, SERUM 106 MMOL/L (96-112); CO2 (CARBON DIOXIDE) 27 MMOL/L (24-34); CREATININE 1.77 MG/DL (0.70-1.30); GFR AFRICAN AMERICAN 44 ML/MIN (>=60); GFR NON AFRICAN AMERICAN 38 ML/MIN (>=60); POTASSIUM, SERUM 4.4 MMOL/L (3.5-5.3); SODIUM, SERUM 141 MMOL/L (135-148)
[2016-06-23 06:27] LABS: BUN (BLOOD UREA NITROGEN) 54 MG/DL (6-23); GLUCOSE, SERUM 97 MG/DL (60-99)
[2016-06-24] MEDS ORDERED: NORV5 PO (10:52)
[2016-06-24] MEDS ORDERED: IMDUR30 PO (10:53)
[2016-06-24] MEDS ORDERED: TRANDAT100 PO (10:53)
[2016-11-22] MEDS ORDERED: TRAN200 PO (09:09)
[2016-11-22] MEDS ORDERED: CRESTOR5 MG PO (09:11)
[2016-11-25] MEDS ORDERED: PCET PO (09:44)
== END 2016-06-24 14:06 | disposition home health service (06) | DRG 330 ==
LOC: ER 06:23 → 4SO 06:25
PROVIDERS: Colon & Rectal Surgery; Internal Medicine; Internal Medicine Nephrology; Nurse Practitioner; Nurse Practitioner Acute Care; Specialist; Surgery
DX: K57.20 Diverticulitis of large intestine with perforation and abscess without bleeding (principal); K56.7 Ileus, unspecified; N17.9 Acute kidney failure, unspecified; E46 Unspecified protein-calorie malnutrition; N18.3 Chronic kidney disease, stage 3 (moderate); I12.9 Hypertensive chronic kidney disease with stage 1 through stage 4 chronic kidney disease, or unspecified chronic kidney disease; Z90.5 Acquired absence of kidney; Z85.528 Personal history of other malignant neoplasm of kidney; Z79.82 Long term (current) use of aspirin; Z79.891 Long term (current) use of opiate analgesic; Z79.52 Long term (current) use of systemic steroids; Z68.27 Body mass index [BMI] 27.0-27.9, adult
CPT/HCPCS: 36569; 74000; 74176; 80048; 80053; 80069; 81001; 82330; 82962; 83605; 83690; 83735; 83880; 84100; 84134; 84478; 85025; 88307; 93005; 93971; 93975; 96374; 96375; 97110-GP; 97116-GP; 97161-GP; 99285; A9270-GY; C1751; C1765; C9113; G8978-CK-GP; G8979-CH-GP; J0360; J0690; J1170; J1956; J2250; J2270; J2405; J2550; J2710; J2795; J3010; J3475